=== PATIENT | male | born 1990 | race Caucasian/White ===

== ENCOUNTER 2023-11-16 21:35 | Emergency (ER) | payer OTHER, SELFPAY ==
[2023-11-16 21:39] VITALS: BP 136/88
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
== END 2023-11-16 23:46 | disposition home or self-care (01) ==
LOC: EMR 21:35
PROVIDERS: EMERGENCY PHYSICIAN Emergency Medicine
DX: S41.111A Laceration without foreign body of right upper arm, initial encounter (principal); V19.9XXA Pedal cyclist (driver) (passenger) injured in unspecified traffic accident, initial encounter; Y93.55 Activity, bike riding
CPT/HCPCS: 99282; 12001